=== PATIENT | male | born 1970 | race Caucasian/White ===

== ENCOUNTER 2021-03-04 20:47 | Emergency (ER) | payer OTHER, SELFPAY ==
[2021-03-04] VITALS (10 sets, daily range): BP systolic 121–174; BP diastolic 62–90; PULSE 64–89; RESP 16–20; TEMP 36.9; O2SAT 95–100
--- NOTE | 2021-03-04 20:52 | DI.RAD.S_ITS ---
PROCEDURE: XR TIBIA FUBULA RT 2V INDICATIONS: pain/swelling TECHNIQUE: 2 views of the tibia and fibula were acquired. COMPARISON: None. FINDINGS: Bones: Oblique fracture at the distal 1/3 of the tibia. Moderate displacement. Oblique fracture of the distal fibula above the syndesmosis. Mild displacement. No suspicious bony lesions. Soft tissues: No suspicious soft tissue calcifications or masses. IMPRESSION: Distal tibia and fibula fractures. Dictated by: Elvin Mills M.D. on 03/04/2021 at 21:57 Approved by: Elvin Mills M.D. on 03/04/2021 at 21:59
[2021-03-04] MEDS: SODIUM CHLORIDE 0.9% 1,000 ML 150 ML IV (22:45)
--- NOTE | 2021-03-04 22:49 | ED_ITS ---
HPI - Extremity Injury (Lower) General Chief Complaint: Extremity Injury, Lower Stated Complaint: Rt leg pain Time Seen by Provider: 03/04/21 21:00 Source: patient and EMS Mode of arrival: EMS History of Present Illness HPI Narrative: 50-year-old gentleman visiting from [place] with a history of hypertension and PTSD stumbled and fell twisting his right lower leg. Unable to bear weight and comes in for further evaluation. Related Data Previous Rx's Medication Instructions Recorded oxycodone-acetaminophen 5 mg-325 1 tab PO Q6H PRN #15 tab 03/05/21 mg tablet Review of Systems Review of Systems Narrative: Pertinent positive and negative findings as per HPI Remainder of review of systems is otherwise unremarkable for Constitutional: Fevers, chills, weakness ENT: No sore throat, neck pain, ear pain CV: Chest pain, palpitations, Respiratory: Cough, wheeze, dyspnea GI: Nausea, vomiting, diarrhea, Patient History Medical History (Updated 03/05/21 @ 05:33 by Shira Cummings MD) Hypertension PTSD (post-traumatic stress disorder) Exam Narrative Exam Narrative: General: Healthy appearing, in a moderate amount of pain secondary to the fracture. Able to give a complete and coherent history. Well- nourished well-developed HEENT: Moist mucous membranes, normal sclera with reactive pupils, Respiratory: Lungs are clear to auscultation, no wheezing no rales no rhonchi. Full and symmetrical air movement Cardiac: Regular rate and rhythm no murmurs no bruits Abdomen: Soft, nontender, good bowel tones, no flank pain Skin: Warm and dry, no rashes Neurologic: Grossly neurologically intact with no obvious asymmetries or abnormalities Extremities: Right lower extremity swelling and tenderness distal tib-fib area. Neurovascularly intact. No large hematomas or significant abrasions. Psych: Cooperative, appropriate insight and affect Initial Vital Signs Initial Vital Signs: Vital Signs Temperature 98.4 F 03/04/21 20:53 Pulse Rate 89 03/04/21 20:53 Respiratory Rate 20 03/04/21 20:53 Blood Pressure 129/62 03/04/21 20:53 Pulse Oximetry 100 03/04/21 20:53 Procedures Orthopedic Fracture Reduction Right tib-fib: Time of procedure: 05:37 Time Out Performed: Yes Side: right Fracture Reduction Location: tibia and fibula Analgesia: procedural sedation (1 mg of Versed, 50 mcg of fentanyl) Technique: direct manipulation and traction/counter-traction Post Reduction X-rays Demonstrate: other (Of the fibula, minimal change to tibia) Post-reduction neuro exam: intact Post-reduction vascular exam: intact Splint Applied: Yes Patient Tolerated Procedure: Well and No complications Orthopedic Splinting/Casting Right tib-fib fracture: Time of procedure: 21:00 Side: right Lower Extremity Injury Location: lower leg Lower Extremity Immobilizer: posterior splint and stirrup splint Other Orthopedic Equipment: crutches Post splinting neuro exam: intact Post splinting vascular exam: intact Placed by: Provider Course Orders Ordered: ED Orders 03/04/21 20:52 XR tibia fibula RT 2V Stat 03/04/21 23:09 XR ankle RT 2V Stat Discontinued Medications Fentanyl (Fentanyl 100 Mcg/2 Ml Inj) 100 mcg 1 mcg/kg (100 mcg) IV NOW ONE Stop: 03/04/21 22:36 Last Admin: 03/04/21 23:12 Dose: 100 mcg Documented by: JAMILA Sodium Chloride (Normal Saline 0.9%) 1,000 mls @ 150 mls/hr IV CONT JAIME Last Infusion: 03/05/21 00:08 Dose: 0 mls/hr Documented by: Admin: 03/04/21 22:45 Dose: 150 mls/hr Documented by: JAMILA Ketorolac Tromethamine (Ketorolac 30 Mg/Ml Vial) 15 mg IV NOW ONE Stop: 03/04/21 23:09 Last Admin: 03/04/21 23:12 Dose: 15 mg Documented by: JAMILA Midazolam HCl (Midazolam 2 Mg/2 Ml Vial) 2 mg IV NOW ONE Stop: 03/04/21 22:36 Last Admin: 03/04/21 23:00 Dose: 1 mg Documented by: JAMILA Oxycodone/Acetaminophen (Oxycodone/Apap 5/325 Prepack) 1 bottle MISC SEEINSTR ONE Stop: 03/04/21 23:10 Last Admin: 03/04/21 23:17 Dose: 1 bottle Documented by: JAMILA Oxycodone/Acetaminophen (Oxycodone/Acetaminophen 5/325 Tablet) 1 tab PO NOW ONE Stop: 03/04/21 23:10 Last Admin: 03/04/21 23:17 Dose: 1 tab Documented by: JAMILA Vital Signs Vital signs: Vital Signs - 8 hr 03/04/21 22:32 03/04/21 22:53 03/04/21 22:57 Pulse Rate 68 71 69 Respiratory Rate 18 18 Blood Pressure 151/90 H 121/66 131/78 Pulse Oximetry 95 96 97 03/04/21 22:58 03/04/21 22:59 03/04/21 23:01 Pulse Rate 69 72 Respiratory Rate 16 20 18 Blood Pressure 168/76 H 174/64 H 167/72 H Pulse Oximetry 99 98 03/04/21 23:05 03/04/21 23:11 03/04/21 23:16 Pulse Rate 68 64 Respiratory Rate Blood Pressure 171/79 H 144/77 H 167/75 H Pulse Oximetry 95 95 MDM - Extremity Injury (Lower) Imaging Data Right tib-fib : Radiologist's Impression: FINDINGS:? ? Bones:? Oblique fracture at the distal 1/3 of the tibia.? Moderate displacement.? Oblique fracture of the distal fibula above the syndesmosis.? Mild displacement.? No suspicious bony lesions.? ? Soft tissues:? No suspicious soft tissue calcifications or masses.? ? IMPRESSION:? Distal tibia and fibula fractures. ? ? Dictated by: Elvin Mills M.D. on 03/04/2021 at 21:57 ? ? Post reduction FINDINGS:? ? Bones:? An oblique fracture of the distal tibial metaphysis demonstrates no significant interval change in alignment and displacement.? Distal fibular fracture demonstrates anatomic alignment. ? Soft tissues:? No tibiotalar joint effusion.? Achilles tendon appears normal.? ? ? IMPRESSION:? 1. Oblique fracture of the distal tibial metaphysis without significant interval change. 2. Anatomic alignment of the distal fibular fracture. ? Dictated by: Flaco Beaulieu M.D. on 03/04/2021 at 23:34 ? ? Approved by: Flaco Beaulieu M.D. on 03/04/2021 at 23:37 ? MDM Narrative Medical decision making narrative: 50-year-old essentially healthy gentleman with mechanical fall and distal tib-fib fractures. He will need orthopedic follow-up but lives in [place] and would prefer to follow-up there. In the emergency department he is slightly sedated to allow brief manipulation while splint is placed. Posterior splint with stirrup for stability is placed and he is neurovascularly intact after splint placement. Pain is adequately controlled. He has crutches available for use and is discharged home with instructions to follow-up with his orthopedic surgeon as soon as he returns to [place]. He is safe for home discharge Discharge Plan Departure Patient Disposition: Home Clinical Impression: Tibia/fibula fracture Qualifiers: Encounter type: initial encounter Fracture type: closed Laterality: right Qualified Code(s): S82.201A - Unspecified fracture of shaft of right tibia, initial encounter for closed fracture Instructions: DI for Ankle Fracture Activity Restrictions/Additional Instructions: Thank you for coming in today You broke both your distal tibia and fibula. With putting the splint in place the fibular fracture has realign nicely but the tibia fracture still is displaced. This is an unstable fracture, please do not put any weight on that ankle. As soon as you return to [place] you will need to follow-up with orthopedic surgeon for definitive treatment of this ankle fracture. Using 400 mg of ibuprofen (2 [id number] pills) and 1 Tylenol every 6 hours can be very helpful in controlling pain. For severe pain using 400 mg of ibuprofen and 1 Percocet can be helpful. Keeping the leg elevated will also help prevent some of the swelling. If you have worsening symptoms please feel free to return to the ER. I hope you heal quickly Prescriptions: New oxycodone-acetaminophen 5-325 mg tablet 1 tab PO Q6H PRN (Reason: pain) Qty: 15 RF: 0
[2021-03-04] MEDS: MIDAZOLAM 2 MG/2 ML VIAL IV (23:00)
--- NOTE | 2021-03-04 23:09 | DI.RAD.S_ITS ---
PROCEDURE: XR ANKLE RT 2V INDICATIONS: post reduction/splinting TECHNIQUE: 3 views of the ankle were acquired. COMPARISON: [facility], , XR TIBIA FIBULA RT 2V, 03/04/2021, 20:59. FINDINGS: Bones: An oblique fracture of the distal tibial metaphysis demonstrates no significant interval change in alignment and displacement. Distal fibular fracture demonstrates anatomic alignment. Soft tissues: No tibiotalar joint effusion. Achilles tendon appears normal. IMPRESSION: 1. Oblique fracture of the distal tibial metaphysis without significant interval change. 2. Anatomic alignment of the distal fibular fracture. Dictated by: Flaco Beaulieu M.D. on 03/04/2021 at 23:34 Approved by: Flaco Beaulieu M.D. on 03/04/2021 at 23:37
[2021-03-04] MEDS: fentaNYL 100 MCG/2 ML INJ IV (23:12)
[2021-03-04] MEDS: KETOROLAC 30 MG/ML VIAL 15 MG IV (23:12)
[2021-03-04] MEDS: OXYCODONE/ACETAMINOPHEN 5/325 TABLET 1 TAB PO (23:17)
[2021-03-04] MEDS: OXYCODONE/APAP 5/325 PREPACK 1 BOTTLE MISC (23:17)
== END 2021-03-05 00:14 | disposition home or self-care (01) ==
PROVIDERS: Emergency Provider Emergency Medicine
DX: S82.201A Unspecified fracture of shaft of right tibia, initial encounter for closed fracture (principal); W19.XXXA Unspecified fall, initial encounter
CPT/HCPCS: 27752; 29515; 73590; 73600; 96361; 96374; 99284; J1885; J2250; J3010